=== PATIENT | female | born 1995 | race Caucasian/White ===

== ENCOUNTER 2017-06-29 12:07 | Emergency (ER) | payer BC, OTHER ==
[2017-06-29 13:16] LABS: BASO # 0.1 10^3/uL (0.0-0.2); BASO % 0.6 % (0.0-1.0); EOS # 0.4 10^3/uL (0.0-0.50); EOS % 4.4 % (0.0-3.0); HEMATOCRIT 36.3 % (36.0-47.0); HEMOGLOBIN 12.2 g/dl (12.0-16.0); IMMATURE GRANULOCYTE % 0.2 % (0-3.0); LYMPH # 1.8 10^3/uL (1.5-6.5); LYMPH % 20.2 % (24.0-44.0); MEAN CORPUSCULAR HGB CONC 33.6 g/dl (32.0-36.5); MEAN CORPUSCULAR VOLUME 86.2 fl (80.0-96.0); MONO # 0.7 10^3/uL (0.0-0.8); MONO % 7.9 % (0.0-5.0); NEUTROPHILS # 5.9 10^3/uL (1.8-7.7); NEUTROPHILS % 66.7 % (36.0-66.0); PLATELET COUNT, AUTOMATED 257 10^3/uL (150-450); RED BLOOD COUNT 4.21 10^6/uL (4.00-5.40); WHITE BLOOD COUNT 8.9 10^3/uL (4.0-10.0)
[2017-06-29 13:22] LABS: AMORPHOUS SEDIMENT SMALL (NEGATIVE); APPEARANCE, URINE CLOUDY (CLEAR); BACTERIA, URINE AUTO 1+ (NEGATIVE); BILIRUBIN, URINE AUTO NEGATIVE (NEGATIVE); BLOOD, URINE BLOOD 1+ (NEGATIVE); COLOR, URINE YELLOW (YELLOW); GLUCOSE, URINE (UA) AUTO NEGATIVE (NEGATIVE); KETONE, URINE AUTO NEGATIVE (NEGATIVE); LEUKOCYTE ESTERASE, URINE AUTO NEGATIVE (NEGATIVE); MUCUS, URINE SMALL (NEGATIVE); NITRITE, URINE AUTO NEGATIVE (NEGATIVE); PROTEIN, URINE AUTO NEGATIVE (NEGATIVE); RBC, URINE AUTO 1 /HPF (0-3); SPECIFIC GRAVITY URINE AUTO 1.014 (1.002-1.035); SQUAMOUS EPITHELIAL CELL UR AU 1 /HPF (0-6); WBC, URINE AUTO 1 /HPF (0-3)
[2017-06-29 13:45] LABS: ANION GAP 6 MEQ/L (8-16); BLOOD UREA NITROGEN 6 MG/DL (7-18); CALCIUM LEVEL 8.7 MG/DL (8.5-10.1); CARBON DIOXIDE LEVEL 28 MEQ/L (21-32); CHLORIDE LEVEL 107 MEQ/L (98-107); CREATININE FOR GFR 0.65 MG/DL (0.55-1.30); GLOMERULAR FILTRATION RATE > 60.0 (>60); GLUCOSE, FASTING 86 MG/DL (70-100); HCG, SERUM QUANTITATIVE < 1.0 MIU/ML; SODIUM LEVEL 141 MEQ/L (136-145)
== END 2017-06-29 15:00 | disposition home or self-care (01) ==
LOC: M ED 12:07
DX: O20.0 Threatened abortion (principal); O99.331 Smoking (tobacco) complicating pregnancy, first trimester; F17.210 Nicotine dependence, cigarettes, uncomplicated; Z3A.00 Weeks of gestation of pregnancy not specified
CPT/HCPCS: 84702

== ENCOUNTER → 2017-11-23 | Outpatient (CLI) | payer BC, OTHER ==
[2017-11-23 17:25] LABS: HEMATOCRIT 38.5 % (36.0-47.0); HEMOGLOBIN 12.5 g/dl (12.0-15.5); MEAN CORPUSCULAR HEMOGLOBIN 29.3 pg (27.0-33.0); MEAN CORPUSCULAR HGB CONC 32.5 g/dl (32.0-36.5); MEAN CORPUSCULAR VOLUME 90.2 fl (80.0-96.0); PLATELET COUNT, AUTOMATED 300 10^3/uL (150-450); RED BLOOD COUNT 4.27 10^6/uL (4.00-5.40); RED CELL DISTRIBUTION WIDTH 13.1 % (11.5-14.5); WHITE BLOOD COUNT 8.1 10^3/uL (4.0-10.0)
[2017-11-23 17:38] LABS: CONTROL LINE HCG INT CTR LINE PRESENT; HCG, SERUM QUALITATIVE NEGATIVE (NEGATIVE)
[2017-11-23 22:27] LABS: FREE T4 0.94 NG/DL (0.76-1.46)
== END ==
LOC: M SMT 13:31
DX: N92.6 Irregular menstruation, unspecified (principal); R53.81 Other malaise
CPT/HCPCS: 84443

== ENCOUNTER → 2017-11-23 | Outpatient (REF) | payer BC, OTHER ==
[2017-11-23 20:50] LABS: CHLAMYDIA DNA AMPLIFICATION NEGATIVE (NEGATIVE); GC DNA AMPLIFICATION NEGATIVE (NEGATIVE)
[2017-12-01 10:56] LABS: HPV LOW VOL RFLX Negative (Negative)
== END ==
LOC: M LAB REF 17:15
DX: Z11.3 Encounter for screening for infections with a predominantly sexual mode of transmission (principal)

== ENCOUNTER → 2018-01-10 | Outpatient (CLI) | payer OTHER ==
[2018-01-10 13:43] LABS: BASO % 0.6 % (0.0-1.0); EOS # 0.2 10^3/uL (0.0-0.50); EOS % 2.4 % (0.0-3.0); HEMATOCRIT 35.6 % (36.0-47.0); HEMOGLOBIN 11.9 g/dl (12.0-15.5); IMMATURE GRANULOCYTE % 0.2 % (0-3.0); LYMPH # 1.4 10^3/uL (1.5-6.5); LYMPH % 21.8 % (24.0-44.0); MEAN CORPUSCULAR HEMOGLOBIN 29.3 pg (27.0-33.0); MEAN CORPUSCULAR HGB CONC 33.4 g/dl (32.0-36.5); MEAN CORPUSCULAR VOLUME 87.7 fl (80.0-96.0); MONO # 0.5 10^3/uL (0.0-0.8); MONO % 8.3 % (0.0-5.0); NEUTROPHILS # 4.2 10^3/uL (1.8-7.7); NEUTROPHILS % 66.7 % (36.0-66.0); PLATELET COUNT, AUTOMATED 275 10^3/uL (150-450); RED BLOOD COUNT 4.06 10^6/uL (4.00-5.40); RED CELL DISTRIBUTION WIDTH 13.2 % (11.5-14.5); WHITE BLOOD COUNT 6.3 10^3/uL (4.0-10.0)
[2018-01-10 14:20] LABS: FREE T4 1.07 NG/DL (0.76-1.46)
[2018-01-10 14:24] LABS: RUBELLA IgG QUALITATIVE IMMUNE (IMMUNE)
[2018-01-10 14:53] LABS: HEPATITIS C VIRUS ABY INDEX 0.3 INDEX (<0.8)
[2018-01-10 14:55] LABS: HIV 1&2 SCREEN CENTAUR NEGATIVE (NEGATIVE)
[2018-01-10 15:34] LABS: CHLAMYDIA DNA AMPLIFICATION NEGATIVE (NEGATIVE); GC DNA AMPLIFICATION NEGATIVE (NEGATIVE)
[2018-01-10 15:50] LABS: HBsAg Prenatal NEGATIVE (NEGATIVE)
== END ==
LOC: M SMT 10:27
DX: Z34.81 Encounter for supervision of other normal pregnancy, first trimester (principal)

== ENCOUNTER → 2018-03-21 | Outpatient (CLI) | payer OTHER | LOC: M RAD 09:16 | DX: Z36.89 Encounter for other specified antenatal screening (principal); Z3A.18 18 weeks gestation of pregnancy | CPT/HCPCS: 76811 ==

== ENCOUNTER 2018-08-25 07:00 | Inpatient (IN) | payer MEDICAID, OTHER ==
[2018-08-25] VITALS (8 sets, daily range): BP systolic 109–131; BP diastolic 56–65
[~2018-08-25] VITALS: Ht 154.9 cm; Wt 90.7 kg
[~2018-08-25 07:00] MED LIST: IBUP600T42 PO; MAPA500T2 PO; PRE-TAB3 PO
[2018-08-25] MEDS ORDERED: PRENTAB9 PO (07:15)
[2018-08-25] MEDS ORDERED: FERR325T3 PO (07:15)
[2018-08-25] MEDS ORDERED: LR 1,000 ML IV SCH (07:29)
[2018-08-25] MEDS ORDERED: LACTATED RINGER'S 1000 ML IV STA (07:29)
[2018-08-25] MEDS ORDERED: OXYTOCIN 30 UNITS IN 0.9% NaCl 500ML IV BAG (J2590) As Ordered ONE (07:38)
[2018-08-25 08:06] LABS: HEMATOCRIT 30.7 % (36.0-47.0); HEMOGLOBIN 9.5 g/dl (12.0-15.5); MEAN CORPUSCULAR HEMOGLOBIN 26.2 pg (27.0-33.0); MEAN CORPUSCULAR HGB CONC 30.9 g/dl (32.0-36.5); MEAN CORPUSCULAR VOLUME 84.8 fl (80.0-96.0); PLATELET COUNT, AUTOMATED 258 10^3/uL (150-450); RED BLOOD COUNT 3.62 10^6/uL (4.00-5.40); WHITE BLOOD COUNT 10.1 10^3/uL (4.0-10.0)
[2018-08-25 08:21] LABS: CORD GAS ABE V -7.7; CORD GAS HCO3 V 19.1 MEQ/L; CORD GAS O2 SAT V 63.3 %; CORD GAS PCO2 V 43.4 mmHg; CORD GAS PH V 7.261 UNITS; CORD GAS PO2 V 29.3 mmHg; CORD GAS SBC V 17.5 MEQ/L; CORD GAS TCO2 V 20.4 MEQ/L
[2018-08-25 08:24] LABS: CORD GAS ABE A -6.7; CORD GAS HCO3 A 21.8 MEQ/L; CORD GAS PCO2 A 55.1 mmHg; CORD GAS PH A 7.215 UNITS; CORD GAS PO2 A 20.2 mmHg; CORD GAS SBC A 17.7 MEQ/L; CORD GAS TCO2 A 23.5 MEQ/L
[2018-08-25] MEDS ORDERED: OXYTOCIN DRIP 30 UNITS in APPROPRIATE DILUENT 1 EA IV SCH (08:31)
--- NOTE | 2018-08-25 08:35 | HPE ---
DATE OF ADMISSION: 08/25/2018 Sarah is a 22-year-old female, 3, para 1-0-1-1, with an expected date of confinement (EDC) of 08/16/2018, estimated gestational age (EGA) of 41-2/7 weeks gestation who presented to labor and deliver in active labor. 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 She presented today in active labor with gross rupture of membranes. Upon evaluation, she was found to be 7 cm dilated, 100% effaced and bearing down. No bleeding. No meconium noted. Her record is reviewed. As mentioned, poor care. Her blood type is O negative, rubella immune, hepatitis negative. Her HIV was also negative and GBS negative. PAST MEDICAL HISTORY: She does have a history of depression and anxiety. PAST SURGICAL HISTORY: Dental procedures. SOCIAL HISTORY: She is a cigarette smoker and smokes approximately 10 cigarettes per day. Denies any alcohol or drug use. REVIEW OF SYSTEMS: Unremarkable. FAMILY HISTORY: Significant for thyroid disease. PHYSICAL EXAMINATION: Obese female in no acute distress. Abdomen: Soft, gravid. Extremities: No clubbing, cyanosis or edema. Vaginal Exam: Done by me - 9 cm, 100% effaced, fetus at 0 station. The patient was bearing down. Tracing reviewed. Category 2 tracing with periods of deep deceleration, but with good recovery. ASSESSMENT: Intrauterine at 41-2/7 weeks gestation in active labor with spotty care. PLAN: Admit to labor and delivery. Routine labs sent. Awaiting delivery.
[2018-08-25] MEDS ORDERED: DOCUSATE SODIUM 100 MG CAP PO PRN (08:45)
[2018-08-25] MEDS ORDERED: ACETAMINOPHEN 500 MG TAB PO PRN (08:45)
[2018-08-25] MEDS ORDERED: IBUPROFEN 600 MG TAB PO PRN (08:45)
[2018-08-25] MEDS ORDERED: MEASLES,MUMPS,RUBELLA VACCINE INJ (MMR-II) (90707) SC SCH (08:45)
[2018-08-25] MEDS ORDERED: METHYLERGONOVINE MALEATE 0.2 MG TAB PO PRN (08:45)
[2018-08-25] MEDS ORDERED: DIBUCAINE 1% OINTMENT 30GM TOP PRN (08:45)
[2018-08-25] MEDS ORDERED: IBUPROFEN 800 MG TAB PO PRN (08:45)
[2018-08-25] MEDS ORDERED: RHOGAM 300 MCG (1500 IU) INJ (J2790) IM SCH (08:45)
[2018-08-25] MEDS ORDERED: ACETAMINOPHEN TAB 650MG DOSE (2X325MG) PO PRN (08:45)
--- NOTE | 2018-08-25 08:58 | DN ---
DATE OF DELIVERY: 08/25/2018 Sarah is a 22-year-old female, 3, para 1-0-1-1 who is admitted at 41-2/7 weeks gestation in active labor. She quickly progressed to fully dilated, had a 4 minute deceleration down to 80 beats per minute. She then pushed and delivered a live male infant with a compound left hand over an intact perineum. scores of 9 and 9, weight 7 pounds 13 ounces. Placenta delivered spontaneously intact. Three-vessel cord. Perineum, vagina, cervix inspected. No laceration noted. Estimated blood loss 300 mL. Both mother and baby in stable condition.
[2018-08-25] MEDS ORDERED: PRENATAL VITAMINS CHEWABLE TABLET PO SCH (21:00)
[2018-08-26 06:00] VITALS: BP 107/57
[2018-08-26] MEDS ORDERED: MAPA500T2 PO ×2 (13:42→13:43)
[2018-08-26] MEDS ORDERED: IBUP-1114 PO (13:42)
== END 2018-08-26 15:40 | disposition home or self-care (01) | DRG 560 ==
LOC: M LDO 07:00 → M LDI 07:27 → M OBS 12:15
PROVIDERS: ADMIT Obstetrics & Gynecology; ATTEND Obstetrics & Gynecology
PROC: 10E0XZZ Delivery of Products of Conception, External Approach (ICD-10-PCS; principal; 2018-08-25)
DX: O48.0 Post-term pregnancy (principal); F17.210 Nicotine dependence, cigarettes, uncomplicated; Z37.0 Single live birth; Z3A.41 41 weeks gestation of pregnancy; O99.334 Smoking (tobacco) complicating childbirth; O32.6XX0 Maternal care for compound presentation, not applicable or unspecified

== ENCOUNTER → 2019-11-02 | Outpatient (CLI) | payer OTHER ==
[~2019-11-02] MED LIST changes: +FERR325T3 PO; +IBUP-1114 PO; +PRENTAB9 PO
== END ==
LOC: M LAB 09:47
PROVIDERS: ATTEND Obstetrics & Gynecology
DX: O26.91 Pregnancy related conditions, unspecified, first trimester (principal)

== ENCOUNTER 2020-05-31 08:23 | Emergency (ER) | payer OTHER ==
[~2020-05-31] VITALS: Ht 154.9 cm; Wt 75.0 kg
--- OUTSIDE RECORDS SUMMARY | 2020-05-31 08:46 | CCD ---
Author Author [facility] Address Unknown Phone Unavailable Care Team Providers Care Cover Stripper Name Role Phone JEIMY WHITE Unavailable Unavailable JEIMY WHITE Unavailable Unavailable JEIMY WHITE Unavailable Unavailable JEIMY WHITE PA Unavailable Unavailable JEIMY WHITE PA Unavailable Unavailable JEIMY WHITE PA Unavailable Unavailable JEIMY WHITE PA Unavailable Unavailable Re-disclosure Warning The records that you are about to access may contain information from federally-assisted alcohol or drug abuse programs. If such information is present, then the following federally mandated warning applies: This information has been disclosed to you from records protected by federal confidentiality rules (42 CFR part 2). The federal rules prohibit you from making any further disclosure of this information unless further disclosure is expressly permitted by the written consent of the person to whom it pertains or as otherwise permitted by 42 CFR part 2. A general authorization for the release of medical or other information is NOT sufficient for this purpose. The Federal rules restrict any use of the information to criminally investigate or prosecute any alcohol or drug abuse patient.The records that you are about to access may contain highly sensitive health information, the redisclosure of which is protected by Article 27-F of the [facility] Public Health law. If you continue you may have access to information: Regarding HIV / AIDS; Provided by facilities licensed or operated by the [facility] Office of Mental Health; or Provided by the [facility] Office for People With Developmental Disabilities. If such information is present, then the following [facility] mandated warning applies: This information has been disclosed to you from confidential records which are protected by state law. State law prohibits you from making any further disclosure of this information without the specific written consent of the person to whom it pertains, or as otherwise permitted by law. Any unauthorized further disclosure in violation of state law may result in a fine or prison sentence or both. A general authorization for the release of medical or other information is NOT sufficient authorization for further disc losure. Allergies and Adverse Reactions Type Description Substance Reaction Status Data Source(s ) Drug allergy Drug allergy olive extract Unknown Reaction I [facility] Family History Family Member Name Family Member Gender Family Member Status Date o f Status Description Data Source(s) Unknown Unknown Problem [facility] ([facility], ) Encounters Encounter Providers Location Date Indications Data Source(s ) Emergency Attender: JEIMY MACE ED-ED 10/04 11:21:00 AM EDT - 10/05/2019 12:13:00 PM EDT EARS HOT, WHITE SPOTS ON THROAT FEVER [facility] EARS HOT, WHITE SPOTS ON THROAT FEVER Patient discharged. Medications Medication Brand Name Start Date Product Form Dose Route Admi nistrative Instructions Pharmacy Instructions Status Indications Reaction Description Data Source(s) 250 mg 10/05/2019 12:00:00 AM EDT tablet 6 TAKE TWO TABLETS BY MOUTH AT ONCE ON THE FIRST DAY THEN TAKE ONE DAILY THEREAFTER TAKE TWO TABLETS BY MOUTH AT ONCE ON THE FIRST DAY THEN TAKE ONE DAILY THEREAFTER SOLD: 10/05/2019 [facility] Insurance Providers Payer name Policy type / Coverage type Policy ID Covered alliance party ID Covered alliance party's relationship to walls Policy Walls Plan Information [facility] [id number] [facility] [id number] [facility] [id number] MEDICAID [id number] S [id number] [facility] SELECT CARE [id number] S [id number] MEDICAID [id number] SP [id number] [facility] [id number] SP 80 [id number] [facility] O [id number] S [id number] [employer] [place] [id number] [facility] Health Maintenance Organization (HMO) [id number] Self [id number] [facility] [id number] SP [id number] [employer] B [id number] C [id number] [employer] Commercial Self SELF PAY UNAVAILABLE SP UNAVAILA BLE BLUE CROSS -O/P [id number] [facility] - CLINIC [id number] BLUE CROSS -O/P [id number] 19 [id number] BL[employer] [id number] Problems, Conditions, and Diagnoses Code Display Name Description Problem Type Effective Dates Data Source(s) J03.90 Acute tonsillitis, unspecified ACUTE TONSILLITIS, UNSP ECIFIED Diagnosis 10/05/2019 11:21:00 AM [facility] Surgeries/Procedures Procedure Description Date Indications Data Source(s) IADNA STREPTOCOCCUS GROUP A AMPLIFIED PROBE TQ STREP A DNA A MP PROBE 10/05/2019 12:00:00 AM [facility] EMERGENCY DEPARTMENT VISIT LOW/MODER SEVERITY EMERGENCY DEPT VISIT 10/05/2019 12:00:00 AM [facility] Results ID Date Data Source [id number] 10/05/2019 11:56:00 AM [facility] spital Method performed by isothermal nucleic acid amplification. Reference value: Negative for Strep A nucleic acid. Confirmatory culture is NOT required for negative results unless clinical symptoms persist, in the event of an acute rheumatic fever outbreak, or if ordered by provider.Negative Name Value Range Interpretation Code Description Data Fauzia rce(s) Supporting Document(s) Procedure Vital Signs ID Date Data Source [id number] 10/23/2019 11:12:00 AM [facility] spital Name Value Range Interpretation Code Description Data Source(s) Weight Measurement Method 8 8 [facility] Weight 2368 2368 [facility] pital Temperature Source 7 7 [facility] Temperature 98.3 98.3 [facility] spital Respiratory Effort 1 1 [facility] Respiratory Rate [address] [facility] Pulse Assessment Method 4 4 G [facility] Pulse Rate 95 95 [facility] pital Height 60 60 [facility] Blood Pressure 111/ 111 [facility] Weight Measurement Method 8 8 [facility] Weight 2368 2368 [facility] pital Temperature Source 7 7 [facility] Temperature 98.3 98.3 [facility] spital Respiratory Effort 1 1 [facility] Respiratory Rate [address] [facility] Pulse Assessment Method 4 4 G [facility] Pulse Rate 95 95 [facility] Weight Measurement Method 8 8 [facility] Weight 2368 2368 [facility] pital Temperature Source 7 7 [facility] Temperature 98.3 98.3 [facility] spital Respiratory Effort 1 1 [facility] Respiratory Rate [address] [facility] Pulse Assessment Method 4 4 G [facility] Pulse Rate 95 95 [facility] pital Height 60 60 [facility] pital Blood Pressure 111/ [facility]
--- NOTE | 2020-05-31 10:03 | REP ---
INDICATION: pain, swelling ? migration of nexplanon. COMPARISON: None. TECHNIQUE: Two views of the left humerus are obtained. FINDINGS: AP and lateral views of the left humerus demonstrate a linear opacity representing the patient's Nexplanon in the subcutaneous soft tissues of the distal arm. Bones and joints are unremarkable.. No fracture or subluxation is seen. . IMPRESSION: Patient's implanted contraceptive device is seen in the subcutaneous space of the distal arm. Exam is otherwise unremarkable.. <Electronically signed by Durga Prabhakar > 05/31/20 1000
--- NOTE | 2020-05-31 10:17 | REP ---
INDICATION: pain, swelling, bruising ? migration of nexplanon. COMPARISON: None. TECHNIQUE: Left upper extremity duplex venous scanning. Soft tissue scanning in the area of the patient's contraceptive implant. FINDINGS: The left internal jugular, axillary, brachial, basilic, and cephalic veins are anechoic and compressible in the left upper extremity. Color flow imaging is homogeneous. Spectral Doppler interrogation is unremarkable. There is no evidence of left upper extremity venous thrombosis. IMPRESSION: Negative left upper extremity duplex venous ultrasound. No evidence of venous thrombosis. Soft tissue sonography in the region of the contraceptive implant demonstrates the linear implant in the subcutaneous tissues. No surrounding fluid collection or significant edema is seen. <Electronically signed by Durga Prabhakar > 05/31/20 1225
[2020-05-31 10:49] VITALS: BP 111/58
== END 2020-05-31 11:07 | disposition home or self-care (01) ==
LOC: M ED 08:23
DX: S40.022A Contusion of left upper arm, initial encounter (principal); X58.XXXA Exposure to other specified factors, initial encounter; Y92.89 Other specified places as the place of occurrence of the external cause; Z79.3 Long term (current) use of hormonal contraceptives; D50.9 Iron deficiency anemia, unspecified; F17.210 Nicotine dependence, cigarettes, uncomplicated

== ENCOUNTER → 2022-03-12 | Outpatient (CLI) | payer OTHER ==
[2022-03-12 15:11] LABS: FOLLICLE STIMULATING HORMONE 5.7 mIU/ML
[2022-03-12 15:12] LABS: FREE T4 1.2 NG/DL (0.89-1.76); LUTEINIZING HORMONE 6.4 mIU/ML; PROLACTIN 5.02 NG/ML
[2022-03-12 15:13] LABS: THYROID STIMULATING HORMONE 2.019 uIU/ML (0.55-4.78)
== END ==
LOC: M PLALAB 10:14
PROVIDERS: ATTEND Obstetrics & Gynecology
DX: N92.6 Irregular menstruation, unspecified (principal)

== ENCOUNTER → 2023-05-28 | Outpatient (CLI) | payer OTHER ==
[~2023-05-28] MED LIST changes: +ISOVUE-370 76% 100ML VIAL As Ordered ONE
== END ==
LOC: M RADPRO 12:06
PROVIDERS: ATTEND Obstetrics & Gynecology
DX: N97.9 Female infertility, unspecified (principal); Z53.9 Procedure and treatment not carried out, unspecified reason

== ENCOUNTER → 2023-07-28 | Outpatient (CLI) | payer OTHER | LOC: M RADPRO 11:34 | PROVIDERS: ATTEND Obstetrics & Gynecology | DX: N97.9 Female infertility, unspecified (principal) | CPT/HCPCS: 58340; 74740; Q9967 ==

== ENCOUNTER 2025-02-18 14:50 | Emergency (ER) | payer OTHER ==
[~2025-02-18] VITALS: Ht 152.4 cm; Wt 69.3 kg
[~2025-02-18 14:50] MED LIST changes: -ISOVUE-370 76% 100ML VIAL As Ordered ONE
[2025-02-18 15:23] LABS: BASO # 0.0 10^3/uL (0.0-0.2); BASO % 0.6 % (0.0-1.0); EOS # 0.1 10^3/uL (0.0-0.5); EOS % 0.8 % (0.0-3.0); LYMPH # 1.2 10^3/uL (1.5-5.0); LYMPH % 18.9 % (24.0-44.0); MONO # 0.4 10^3/uL (0.0-0.8); MONO % 6.9 % (2.0-8.0); NEUTROPHILS # 4.5 10^3/uL (1.5-8.5); NEUTROPHILS % 72.5 % (36.0-66.0); PLATELET COUNT, AUTOMATED 252 10^3/uL (150-450)
[2025-02-18 15:52] LABS: CALCIUM LEVEL 8.8 MG/DL (8.5-10.1); CARBON DIOXIDE LEVEL 25 MMOL/L (20-31); CHLORIDE LEVEL 102 MMOL/L (98-107); CREATININE FOR GFR 0.53 MG/DL (0.55-1.30); GLOMERULAR FILTRATION RATE > 90.0 (>60); POTASSIUM SERUM 3.6 MMOL/L (3.5-5.1); SODIUM LEVEL 137 MMOL/L (136-145)
[2025-02-18 17:25] LABS: KETONE, URINE AUTO RFX 1+ mg/dL (NEGATIVE); LEUKOCYTE ESTERASE UR AUTO RFX NEGATIVE (NEGATIVE); NITRITE, URINE AUTO RFX NEGATIVE (NEGATIVE); RBC, URINE AUTO RFX 1 /HPF (0-3); SQUAM EPITHELIAL CELL UR AURFX 0 /HPF (0-6); WBC, URINE AUTO RFX 0 /HPF (0-3)
[2025-02-18 18:17] VITALS: BP 114/65; TEMP 97.6; O2SAT 100
== END 2025-02-18 18:20 | disposition home or self-care (01) ==
LOC: M ED 14:50
DX: O26.851 Spotting complicating pregnancy, first trimester (principal); Z3A.11 11 weeks gestation of pregnancy; O99.331 Smoking (tobacco) complicating pregnancy, first trimester; F41.9 Anxiety disorder, unspecified; O99.341 Other mental disorders complicating pregnancy, first trimester; F32.A Depression, unspecified; Z79.1 Long term (current) use of non-steroidal anti-inflammatories (NSAID); Z79.810 Long term (current) use of selective estrogen receptor modulators (SERMs)